=== PATIENT | male | born 1995 | race Caucasian/White ===

== ENCOUNTER 2018-09-20 13:58 | Emergency (ER) | payer MEDICAID, OTHER ==
[~2018-09-20] VITALS: Ht 177.8 cm; Wt 59.0 kg
[2018-09-20 14:08] VITALS: BP 125/82
[2018-09-20] MEDS ORDERED: KETOROLAC TROMETH 60MG/2ML VIAL IM ONE (15:15)
[2018-09-20] MEDS ORDERED: KETOROLAC TROMETH 30 MG/ML 1ML VIAL IV ONE (15:15)
== END 2018-09-20 15:42 | disposition home or self-care (01) ==
LOC: ER 13:58
DX: S76.012A Strain of muscle, fascia and tendon of left hip, initial encounter (principal); M25.852 Other specified joint disorders, left hip; V00.311A Fall from snowboard, initial encounter; Y93.23 Activity, snow (alpine) (downhill) skiing, snowboarding, sledding, tobogganing and snow tubing; Y99.8 Other external cause status; Y92.89 Other specified places as the place of occurrence of the external cause
CPT/HCPCS: 73502; 96374; 99283; J1885